=== PATIENT | male | born 1940 ===

== ENCOUNTER 2018-08-15 07:22 | Day surgery (SDC) | payer OTHER ==
[2018-08-14 13:05] VITALS: BMI 27.3
[2018-08-15 08:02] VITALS: RESP 18; TEMP 97.6
--- NOTE | 2018-08-15 08:45 | CP.SDSHP ---
Same Day Surgery H & P - History Proposed Procedure: colonoscopy Pre-Op Diagnosis: h/o colon resection due to polyps 2012 - Previous Medical/Surgical History Cardiac: Hypertension, Other (hyperlipidemia, BPH, colon polyps) Previous Surgical History: Partial colon resection. TURP - Allergies Allergies: Allergies No Known Allergies Allergy (Verified 03/20/16 13:38) - Physical Exam Vital Signs: Vital Signs 08/15/18 07:55 Temperature 97.6 F Pulse Rate 64 Respiratory 18 Rate Blood Pressure 126/66 O2 Sat by Pulse 98 Oximetry Mental Status: Alert & Oriented x3 Neuro: WNL Heart: WNL Lungs: WNL GI: Other (midline scar) - Impression Impression: h/o colon polyps. s/p partial colon resection Pt. Evaluated Today:Candidate for Anesthesia & Procedure: Yes - Date & Time Date: 08/15/18 Time: 08:45 Short Stay Discharge - Short Stay Discharge Admitting Diagnosis/Reason for Visit: ENCOUNTER FOR SCREENING FOR MALIGNANT NEOPLASM OF Disposition: HOME/ ROUTINE
[2018-08-15] MEDS ORDERED: Lactated Ringer's 500 ML IV ONE (08:46)
[2018-08-15] MEDS ORDERED: Etomidate 20 mg/10ml Inj IV ONE (08:47)
[2018-08-15] MEDS ORDERED: Propofol 10 mg/ml Inj (20 ML) ONE (08:48)
[2018-08-15] MEDS ORDERED: ePHEDrine 50 mg/ml Inj ONE (09:01)
[2018-08-15] MEDS ORDERED: Simethicone 40 mg/0.6 ml Liquid (30 ml) ONE ×2 (09:05)
[2018-08-15 09:10] VITALS: PULSE 60; O2SAT 100
[2018-08-15] MEDS ORDERED: Simethicone 40 mg/0.6 ml Liquid (30 ml) PO SCH (10:00)
[2018-08-15 10:05] VITALS: BP 122/67
== END 2018-08-15 10:05 | disposition home or self-care (01) ==
LOC: C.ENDO 07:22
PROVIDERS: ATTEND Internal Medicine Gastroenterology
DX: Z12.11 Encounter for screening for malignant neoplasm of colon (principal); D12.2 Benign neoplasm of ascending colon; D12.4 Benign neoplasm of descending colon; D12.5 Benign neoplasm of sigmoid colon; D12.3 Benign neoplasm of transverse colon; K57.30 Diverticulosis of large intestine without perforation or abscess without bleeding; K64.1 Second degree hemorrhoids; I10 Essential (primary) hypertension; E78.49 Other hyperlipidemia; N40.0 Benign prostatic hyperplasia without lower urinary tract symptoms; Z86.010 Personal history of colon polyps; Z98.0 Intestinal bypass and anastomosis status
CPT/HCPCS: 45385; 88305; J2001; J2704; J7120

== ENCOUNTER 2018-08-17 07:47 | Outpatient (CLI) | payer OTHER | END 2018-08-17 07:48 | disposition home or self-care (01) | LOC: C.LAB 07:47 | DX: N40.0 Benign prostatic hyperplasia without lower urinary tract symptoms (principal) ==